=== PATIENT | female | born 1960 | race Caucasian/White ===

== ENCOUNTER → 2018-08-25 | Outpatient (CLI) | payer MEDICARE ==
[~2018-08-25] MED LIST: ASPI-1441 PO; ENAL20TA99 PO; PRAV10TA45 PO; PROP40TA45 PO; RANI150C14 PO; SER50 PO
== END ==
LOC: RESP 19:45
PROVIDERS: ATTEND Nurse Practitioner Family
DX: G47.33 Obstructive sleep apnea (adult) (pediatric) (principal); G47.36 Sleep related hypoventilation in conditions classified elsewhere

== ENCOUNTER → 2018-09-01 | Outpatient (CLI) | payer MEDICARE | LOC: US 02:08 | PROVIDERS: ATTEND Internal Medicine Cardiovascular Disease | DX: Z13.6 Encounter for screening for cardiovascular disorders (principal); I50.40 Unspecified combined systolic (congestive) and diastolic (congestive) heart failure | CPT/HCPCS: 93306 ==

== ENCOUNTER → 2018-09-21 | Outpatient (CLI) | payer MEDICARE ==
--- NOTE | 2018-09-21 16:33 | RADIOLOGY IMAGING REPORT ---
FACILITY: [facility] PATIENT NAME: Gisela Rudd : 1960 MR: [id number] V: [id number] EXAM DATE: ORDERING PHYSICIAN: ARI LYON TECHNOLOGIST: Location: [facility] - [place] Patient: Gisela Rudd : 1960 Visit/Account:[id number] Date of Sevice: 09/21/2018 2 VIEWS CHEST INDICATION: History of low oxygen saturation COMPARISON: None available FINDINGS: Heart appears at the upper limits of normal. No current failure, consolidation, infiltrate, effusion or pneumothorax. No evidence of acute bony finding. Fixation is seen of the left clavicle. The latera l view demonstrates mild prominence central bronchial waters. Chronicity of this finding is unknown. IMPRESSION: 1. Mild bronchitic changes of unknown chronicity. This can be seen in the setting of acute/chronic br onchitis or atypical pneumonitis. Report Dictated By: Tristin Salcedo MD at 09/21/2018 4:27 PM Report E-Signed By: Tristin Salcedo MD at 09/21/2018 4:28 PM WSN:[id number]
== END ==
LOC: RAD 14:23
PROVIDERS: ATTEND Nurse Practitioner Family
DX: R09.02 Hypoxemia (principal); D75.1 Secondary polycythemia
CPT/HCPCS: 71046

== ENCOUNTER → 2019-02-15 | Outpatient (CLI) | payer MEDICARE | LOC: RESP 01:19 | PROVIDERS: ATTEND Internal Medicine | DX: J98.4 Other disorders of lung (principal) | CPT/HCPCS: 94060; 94726; 94729 ==

== ENCOUNTER 2019-03-19 09:27 | Observation (INO) | payer MEDICARE ==
[~2019-03-19] VITALS: Ht 172.7 cm; Wt 137.9 kg
[2019-03-19] MEDS ORDERED: ATOR40TA69 PO (09:51)
[2019-03-19] MEDS ORDERED: AMLO-127 PO (09:51)
[2019-03-19] MEDS ORDERED: METO50TA19 PO (09:51)
[2019-03-19] MEDS ORDERED: METXR500 PO (09:51)
[2019-03-19] MEDS ORDERED: FLUO-177 PO (09:51)
[2019-03-19] MEDS ORDERED: GABA-533 PO (09:51)
--- NOTE | 2019-03-19 10:05 | ER Report ---
History and Physical Time Seen By MD: 10:05 Hx. of Stated Complaint: Pt. has had a cold for few days, but this morning she had a lot more coughing with blood tinged sputum. Fever 100 in triage. Also feels SOB and weak. HPI/ROS Presents with fever/cough/blood-tinged sputum. Sick contacts with family. Previous history of IA with stents, DM, and HTN. Worsening SOB today. No chest pain. No abdominal pain. Remainder of the 14 system rev: Yes Allergies: Coded Allergies: Sulfa (Sulfonamide Antibiotics) (Verified Allergy, Severe, RASH, BP ELEVATED, 04/17/08) TESSY Inhibitors (Verified Allergy, Intermediate, dehydration, 03/19/19) Penicillins (Verified Allergy, Intermediate, SWELLING, FEVER, 04/17/08) cephalexin (Verified Allergy, Mild, 05/29/08) hydrocodone (Verified Allergy, Mild, HEADACHE, 04/17/08) Uncoded Allergies: BANDAID (Allergy, Mild, IRRITATION, 04/17/08) Home Meds Active Scripts Levofloxacin 750 Mg Tab (LEVAQUIN 750 MG TAB) 750 Mg Tablet, 750 MG PO DAILY for 5 Days, #5 TAB Prov:KIRSTIE SCHWARTZ Yunier [employer] SUPERVISOR 03/20/19 Reported Medications Acetaminophen (TYLENOL) 325 Mg Tablet, 1950 MG PO BID, TAB 03/19/19 Atorvastatin Calcium (ATORVASTATIN CALCIUM) 40 Mg Tablet, 1 TAB PO HS 03/19/19 Metoprolol Succinate (METOPROLOL SUCCINATE) 50 Mg Tab.er.24h, 1 TAB PO DAILY 03/19/19 Metformin Hcl (METFORMIN HCL ER) 500 Mg Tabcr, 1000 MG PO DAILY 03/19/19 Gabapentin (GABAPENTIN) 600 Mg Tablet, 1 TAB PO HS 03/19/19 Fluoxetine Hcl (FLUOXETINE HCL) 20 Mg Capsule, 1 TAB PO HS 03/19/19 Amlodipine Besylate (AMLODIPINE BESYLATE) 10 Mg Tablet, 1 TAB PO DAILY 03/19/19 Aspirin (Aspirin Ec) 81 Mg Tablet.dr, 81 MG PO DAILY, 0 Refills 05/30/08 Ranitidine Hcl (Zantac) 150 Mg Capsule, 150 MG PO BID, 0 Refills 05/30/08 Discontinued Reported Medications Pravastatin Sodium (Pravachol) 10 Mg Tablet, 10 MG PO QDAY, 0 Refills 05/30/08 Sertraline Hcl (Zoloft) 50 Mg Tab, 50 MG PO QDAY, 0 Refills 05/30/08 Enalapril Maleate (Vasotec) 20 Mg Tablet, 20 MG PO DAILY, 0 Refills 05/30/08 Propranolol Hcl (Inderal) 40 Mg Tablet, 40 MG PO BID, 0 Refills 05/30/08 Hx Smoking: Yes (PAST) Constitutional Vital Sign - Last 24 Hours 03/19/19 03/19/19 03/19/19 03/19/19 09:27 09:32 09:37 09:40 Temp 100.0 Pulse ??? 97 ??? 89 Resp 16 B/P (MAP) 148/81 (103) 148/81 Pulse Ox 82 89 91 O2 Delivery Nasal Cannula 03/19/19 03/19/19 03/19/19 03/19/19 09:42 09:45 09:47 09:52 Pulse 86 91 88 Resp 15 18 B/P (MAP) 137/73 (94) Pulse Ox 91 91 90 03/19/19 03/19/19 03/19/19 03/19/19 09:57 10:00 10:02 10:07 Pulse 88 88 87 Resp 13 23 20 B/P (MAP) 154/80 (104) Pulse Ox 91 92 91 03/19/19 03/19/19 03/19/19 03/19/19 10:12 10:15 10:27 10:30 Pulse 88 87 Resp 31 B/P (MAP) 155/77 (103) 160/85 (110) Pulse Ox 93 91 03/19/19 03/19/19 03/19/19 03/19/19 10:32 10:37 10:45 11:00 Pulse 85 86 Resp 15 22 B/P (MAP) 145/81 (102) 161/83 (109) Pulse Ox 91 92 03/19/19 03/19/19 03/19/19 03/19/19 11:07 11:12 11:15 11:17 Pulse ? Resp 23 B/P (MAP) ???/??? (1255) Pulse Ox 92 O2 Delivery Nasal Cannula O2 Flow Rate 4 03/19/19 03/19/19 03/19/19 03/19/19 11:22 11:27 11:30 11:32 Pulse ? B/P (MAP) ???/??? (1665) 03/19/19 03/19/19 03/19/19 03/19/19 11:37 11:42 11:47 11:52 Pulse ? 90 88 Resp 21 24 Pulse Ox 91 93 03/19/19 03/19/19 03/19/19 03/19/19 11:57 12:00 12:02 12:07 Pulse 86 87 91 Resp 33 9 28 B/P (MAP) 140/74 (96) Pulse Ox 91 91 91 03/19/19 03/19/19 03/19/19 03/19/19 12:12 12:15 12:16 12:17 Temp 100.9 Pulse 88 89 Resp 24 22 B/P (MAP) 158/85 (109) Pulse Ox 82 91 03/19/19 03/19/19 03/19/19 03/19/19 12:22 12:27 12:30 12:32 Pulse 86 92 90 Resp 24 44 18 B/P (MAP) 164/80 (108) Pulse Ox 92 91 92 03/19/19 03/19/19 03/19/19 03/19/19 12:37 12:42 12:47 12:57 Pulse 92 ? 85 Resp 49 Pulse Ox 92 90 03/19/19 03/19/19 13:00 13:02 Pulse 85 Resp 26 B/P (MAP) 137/71 (93) Pulse Ox 91 Physical Exam General Appearance: The patient is alert, has no immediate need for airway protection and no current signs of toxicity. Eyes: Pupils equal and round no injection. Respiratory: Chest is non tender, scant rhonchi throughout Cardiac: tachycardic, regular rhythm Gastrointestinal: Abdomen is soft and non tender, no masses, bowel sounds normal. Neck: Neck is supple and non tender. Extremities have full range of motion and are non tender. Skin: No rashes or lesions. DIFFERENTIAL DIAGNOSIS: After history and physical exam differential diagnosis was considered for shortness of breath including but not limited to pulmonary infectious process, COPD, asthma, pulmonary embolus and congestive heart failure. Medical Decision Making Data Points Result Diagram: 03/20/19 0543 03/20/19 0543 Laboratory Hematology Test 03/19/19 10:04 D-Dimer Quantitative (PE/DVT) 0.53 ug/ml (0-0.50) Chemistry Test 03/19/19 10:04 D-Dimer Quantitative (PE/DVT) 0.53 ug/ml (0-0.50) Coagulation Test 03/19/19 10:04 D-Dimer Quantitative (PE/DVT) 0.53 ug/ml Microbiology Microbiology Date/Time Source Procedure Growth Status 03/19/19 12:23 Blood Blood Culture - Preliminary NO GROWTH AFTER 1 DAY, REINCUBATED Resulted 03/19/19 10:04 Blood Line Draw Blood Culture - Preliminary NO GROWTH AFTER 1 DAY, REINCUBATED Resulted ED Course/Re-evaluation ED Course Multi lobar pneumonia with hypoxia. No PE. No chest pain to suggest acute coronary syndrome. Sats in 70s upon arrival. Patient treated with antibiotics and IV fluids for sepsis. Will be admitted for further care. Decision to Disposition Date: Mar 20, 2019 Decision to Disposition Time: 10:49 Depart Departure Latest Vital Signs Vital Signs Date Time Temp Pulse Resp B/P (MAP) Pulse Ox O2 Delivery O2 Flow Rate FiO2 03/19/19 13:02 85 26 91 03/19/19 13:00 137/71 (93) 03/19/19 12:16 100.9 03/19/19 11:07 Nasal Cannula 4 Impression: Primary Impression: Pneumonia Condition: Improved Disposition: Admitted from ER New Scripts Levofloxacin 750 Mg Tab (LEVAQUIN 750 MG TAB) 750 Mg Tablet 750 MG PO DAILY for 5 Days, #5 TAB Prov: KIRSTIE SCHWARTZ Yunier [employer]ER[employer] SUPERVISOR 03/20/19 Problem Qualifiers Primary Impression: Pneumonia Pneumonia type: due to unspecified organism Laterality: bilateral Lung location: unspecified part of lung Qualified Codes: J18.9 - Pneumonia, unspecified organism VIMAL CHAMBERS MD Mar 19, 2019 10:05
[2019-03-19 10:21] LABS: PLATELET COUNT, AUTOMATED 112 K/uL (150-450)
--- NOTE | 2019-03-19 10:42 | RADIOLOGY IMAGING REPORT ---
FACILITY: [facility] PATIENT NAME: Gisela Rudd : 1960 MR: [id number] V: [id number] EXAM DATE: ORDERING PHYSICIAN: VIMAL CHAMBERS TECHNOLOGIST: Location: [facility] - [place] Patient: Gisela Rudd : 1960 Visit/Account:[id number] Date of Sevice: 03/19/2019 Technique: CHEST PA LAT HISTORY: fever/hemoptysis Comparison studies: September 21, 2018 FINDINGS: Consolidative changes are noted within the left midlung. No pleural effusion. The right cornelio g is clear. The cardiac silhouette is unchanged. Plate and screw fixation traverses the left clavicle . IMPRESSION: 1. Findings consistent with left-sided pneumonia. Report Dictated By: Thmoas Portillo DO at 03/19/2019 10:37 AM Report E-Signed By: Thomas Portillo DO at 03/19/2019 10:38 AM WSN:[id number]
[2019-03-19] MEDS ORDERED: NS(*) 0.9% 50 ML BAG 50 ML ONE ×2 (11:20→11:33)
[2019-03-19] MEDS ORDERED: IOPAMIDOL 76% 100 ML INFUS BTL 100 ML ONE ×2 (11:20→11:33)
--- NOTE | 2019-03-19 12:11 | RADIOLOGY IMAGING REPORT ---
FACILITY: [facility] - [place] PATIENT NAME: Gisela Rudd : 1960 MR: [id number] V: [id number] EXAM DATE: ORDERING PHYSICIAN: VIMAL CHAMBERS TECHNOLOGIST: Location: [facility] Patient: Gisela Rudd : 1960 Visit/Account:[id number] Date of Sevice: 03/19/2019 CT CTA CHEST W CON HISTORY: SOB/HYPOXIA TECHNIQUE: CTA chest with intravenous contrast attention to pulmonary arteries. Sagittal, coronal a nd slab 3D MIP coronal reconstructed images were also created for further evaluation and interpretati on. One of the following dose optimization techniques was utilized in the performance of this exam: Autom ated exposure control; adjustment of the mA and/or kV according to the patient's size; or use of an i terative reconstruction technique. Specific details can be referenced in the facility's radiology CT exam operational policy. CONTRAST: 100 mL Isovue-370. COMPARISON: CT dated May 29, 2008. FINDINGS: Heart/vessels: Suboptimal visualization's of distal segmental and subsegmental pulmonary arterial br anches secondary to contrast bolus timing and motion artifact. Otherwise, no visualized pulmonary emb olus. Moderate to advanced calcifications within the LAD. Moderate calcifications within the RCA and left circumflex. Mild atherosclerosis within the aortic arch. Mediastinum: Negative. Lymph nodes: Negative. Lungs/pleura: Heterogeneous consolidation and pulmonary opacities within the left upper lobe/lingula . Subtle additional groundglass opacities within the left lower lobe. Small opacities within the lowe r lobe bases, favored related to atelectasis. Trace left pleural effusion. Visualized upper abdomen: Splenomegaly measuring 14.9 cm in the axial plane. Otherwise negative. Bones/soft tissues: Negative. IMPRESSION: 1. Negative for pulmonary embolus although there is suboptimal visualization of distal segmental and subsegmental palmar edge of branches. 2. Heterogeneous consolidation and pulmonary opacities within the left upper lobe/lingula. Additional subtle opacities within the left lower lobe. Findings are most compatible with multifocal pneumonia. 3. Small opacities within the dependent lower lobes, favored to represent atelectasis although cannot exclude component of infection. 4. Nonspecific splenomegaly. 5. Additional incidental/chronic findings, as above. Report Dictated By: Harpreet Molina MD at 03/19/2019 12:02 PM Report E-Signed By: Harpreet Molina MD at 03/19/2019 12:07 PM WSN:[id number]
[2019-03-19] MEDS ORDERED: NS(*) 0.9% 1000 ML BAG 1,000 ML IV ONE (12:25)
[2019-03-19] MEDS ORDERED: DOXYCYCLINE HYCL 100 MG VIAL 100 MG in NS(*) 0.9% 250 ML BAG 250 ML IVPB ONE (12:25)
[2019-03-19] MEDS ORDERED: ACETAMINOPHEN 500 MG TAB PO ONE (12:25)
[2019-03-19 13:56] VITALS: BP 160/76
[2019-03-19] MEDS ORDERED: FLUSH 10 ML SYR IVP PRN (14:10)
[2019-03-19] MEDS ORDERED: ACET-1966 PO (14:29)
[2019-03-19] MEDS ORDERED: LEVOFLOXACIN/D5W 750 MG/150 ML 150 ML IVPB SCH (15:00)
[2019-03-19] MEDS ORDERED: LR(*) 1000 ML BAG 1,000 ML IV ONE (15:10)
--- NOTE | 2019-03-19 17:16 | History & Physical ---
History of Present Illness Chief Complaint blood tinged sputum History of Present Illness 58F presented with cough, blood tinged sputum. PMHx significant for obesity, DM, HTN, CAD. Reports not feeling well for a few days. Today had cough productive of blood tinged sputum. In ER found to be mildly hypoxic on baseline 3L, CT negative for PE but did show multifocal pneumonia. LA was slightly elevated at 3.3 and she was febrile. Admitted for IV antibiotics and fluid. History Problems: (1) DM (diabetes mellitus) Status: Chronic (2) Morbid obesity with BMI of 45.0-49.9, adult Status: Chronic (3) Hypertension Status: Chronic (4) CAD (coronary artery disease) Status: Chronic Home Meds Reported Medications Acetaminophen (TYLENOL) 325 Mg Tablet, 1950 MG PO BID, TAB 03/19/19 Atorvastatin Calcium (ATORVASTATIN CALCIUM) 40 Mg Tablet, 1 TAB PO HS 03/19/19 Metoprolol Succinate (METOPROLOL SUCCINATE) 50 Mg Tab.er.24h, 1 TAB PO DAILY 03/19/19 Metformin Hcl (METFORMIN HCL ER) 500 Mg Tabcr, 1000 MG PO DAILY 03/19/19 Gabapentin (GABAPENTIN) 600 Mg Tablet, 1 TAB PO HS 03/19/19 Fluoxetine Hcl (FLUOXETINE HCL) 20 Mg Capsule, 1 TAB PO HS 03/19/19 Amlodipine Besylate (AMLODIPINE BESYLATE) 10 Mg Tablet, 1 TAB PO DAILY 03/19/19 Aspirin (Aspirin Ec) 81 Mg Tablet.dr, 81 MG PO DAILY, 0 Refills 05/30/08 Ranitidine Hcl (Zantac) 150 Mg Capsule, 150 MG PO BID, 0 Refills 05/30/08 Discontinued Reported Medications Pravastatin Sodium (Pravachol) 10 Mg Tablet, 10 MG PO QDAY, 0 Refills 05/30/08 Sertraline Hcl (Zoloft) 50 Mg Tab, 50 MG PO QDAY, 0 Refills 05/30/08 Enalapril Maleate (Vasotec) 20 Mg Tablet, 20 MG PO DAILY, 0 Refills 05/30/08 Propranolol Hcl (Inderal) 40 Mg Tablet, 40 MG PO BID, 0 Refills 05/30/08 Allergies: Coded Allergies: Sulfa (Sulfonamide Antibiotics) (Verified Allergy, Severe, RASH, BP ELEVATED, 04/17/08) TESSY Inhibitors (Verified Allergy, Intermediate, dehydration, 03/19/19) Penicillins (Verified Allergy, Intermediate, SWELLING, FEVER, 04/17/08) cephalexin (Verified Allergy, Mild, 05/29/08) hydrocodone (Verified Allergy, Mild, HEADACHE, 04/17/08) Uncoded Allergies: BANDAID (Allergy, Mild, IRRITATION, 04/17/08) Patient History: FH: cancer FATHER FH: congestive heart failure MOTHER FH: diabetes mellitus MOTHER FH: heart disease MOTHER Hx Smoking: Yes Smoking Status: Former Smoker Caffeine Intake: Coffee Hx Alcohol Use: No Hx Substance Use Disorder: No Social Drug Use: Never Review of Systems All Systems Reviewed/Normal: Yes, Except as Noted Constitutional: Fever Respiratory: Cough Gastrointestinal: No Nausea, No Vomiting Exam Vital Signs Vital Signs Date Time Temp Pulse Resp B/P (MAP) Pulse Ox O2 Delivery O2 Flow Rate FiO2 03/19/19 13:56 100.2 83 16 160/76 (104) 92 Nasal Cannula 4.0 General Appearance: Alert, Awake, No Acute Distress Neuro: No Gross deficits Cardiovascular: Normal Rhythm & Peripheral Pulses Respiratory: No Respiratory Distress GI: Abd Soft and Non-Tender Extremities: Soft and Non Tender, Warm, Pulses, Perfused, Edema (mild) Medical Decision Making Data Points Result Diagram: 03/19/19 1004 03/19/19 1004 Assessment and Plan Problems: (1) Pneumonia Assessment & Plan: Multifocal pneumonia per CT. Begin empiric levofloxacin based on allergy profile. Feeling much better anticipate discharge tomorrow. (2) Lactic acidosis Assessment & Plan: Appears secondary to mild hypoxia. Improved with IV fluids. (3) Chronic respiratory failure with hypoxia Status: Chronic Assessment & Plan: Unclear etiology, follows with pulmonology. She is at her baseline 3L during day, uses CPAP with 5L at night. (4) CAD (coronary artery disease) Status: Chronic Assessment & Plan: History of stent several years ago. Occasional chest pain, none recently. (5) Hypertension Status: Chronic Assessment & Plan: Continue chronic medications. (6) DM (diabetes mellitus) Status: Chronic Assessment & Plan: Hold metformin, will monitor with lab and add SSI if necessary. Venous Thromboembolism Antithrombotics Is Pt On Any Antithrombotics?: Yes Exam Sepsis Risk: No Definite Risk GILLETTE TONI WOMACK DO Mar 19, 2019 17:15
[2019-03-19] MEDS ORDERED: ACETAMINOPHEN 500 MG TAB PO PRN (17:20)
[2019-03-19] MEDS ORDERED: PSEUDOEPHEDRINE 30 MG TAB PO PRN (17:25)
[2019-03-19 18:45] VITALS: BP 139/78
[2019-03-19] MEDS: GABAPENTIN 300 MG CAP PO SCH (20:19)
[2019-03-19] MEDS: RANITIDINE HCL 150 MG TAB PO SCH (20:19)
[2019-03-19] MEDS ORDERED: ATORVASTATIN 40 MG TAB PO SCH (21:00)
[2019-03-19 23:05] VITALS: BP 135/53
[2019-03-20 06:05] LABS: PLATELET COUNT, AUTOMATED 116 K/uL (150-450)
[2019-03-20 06:40] VITALS: BP 149/71
[2019-03-20] MEDS ORDERED: LEVO750T44 PO (08:04)
--- NOTE | 2019-03-20 08:10 | Hospitalist Depart ---
Discharge Summary Reason for Hosp/Final Diag: (1) Pneumonia Status: Acute Hospital Course & Plan: Multifocal pneumonia per CT. She was placed on empiric levofloxacin based on allergy profile. She reports much improvement in symptoms. She is at her baseline oxygen use. She will follow up with PCP in one week. (2) Lactic acidosis Hospital Course & Plan: Appears secondary to mild hypoxia. Improved with IV fluids. (3) Chronic respiratory failure with hypoxia Status: Chronic Hospital Course & Plan: Unclear etiology, follows with pulmonology. She is at her baseline 3L during day, uses CPAP with 5L at night. (4) CAD (coronary artery disease) Status: Chronic Hospital Course & Plan: History of stent several years ago. Occasional chest pain, none recently. (5) Hypertension Status: Chronic Hospital Course & Plan: Continue chronic medications. (6) DM (diabetes mellitus) Status: Chronic Hospital Course & Plan: Hold metformin, will monitor with lab and add SSI if necessary. Departure Latest Vital Signs Vital Signs 03/20/19 03/20/19 03/20/19 05:25 06:40 07:41 Temp 99.1 Pulse 68 Resp 24 B/P (MAP) 149/71 (97) Pulse Ox 96 O2 Delivery Nasal Cannula O2 Flow Rate 3.0 FiO2 40.0 Weight (Pounds): 304 Result Diagram: 03/20/19 0543 03/20/19 0543 Condition: Improved Discharge: Home, Self Care Discharge Instructions Home Meds Active Scripts Levofloxacin 750 Mg Tab (LEVAQUIN 750 MG TAB) 750 Mg Tablet, 750 MG PO DAILY for 5 Days, #5 TAB Prov:KIRSTIE SCHWARTZ Yunier [employer] SCI[employer] TEACHER 03/20/19 Reported Medications Acetaminophen (TYLENOL) 325 Mg Tablet, 1950 MG PO BID, TAB 03/19/19 Atorvastatin Calcium (ATORVASTATIN CALCIUM) 40 Mg Tablet, 1 TAB PO HS 03/19/19 Metoprolol Succinate (METOPROLOL SUCCINATE) 50 Mg Tab.er.24h, 1 TAB PO DAILY 03/19/19 Metformin Hcl (METFORMIN HCL ER) 500 Mg Tabcr, 1000 MG PO DAILY 03/19/19 Gabapentin (GABAPENTIN) 600 Mg Tablet, 1 TAB PO HS 03/19/19 Fluoxetine Hcl (FLUOXETINE HCL) 20 Mg Capsule, 1 TAB PO HS 03/19/19 Amlodipine Besylate (AMLODIPINE BESYLATE) 10 Mg Tablet, 1 TAB PO DAILY 03/19/19 Aspirin (Aspirin Ec) 81 Mg Tablet.dr, 81 MG PO DAILY, 0 Refills 05/30/08 Ranitidine Hcl (Zantac) 150 Mg Capsule, 150 MG PO BID, 0 Refills 05/30/08 Discontinued Reported Medications Pravastatin Sodium (Pravachol) 10 Mg Tablet, 10 MG PO QDAY, 0 Refills 05/30/08 Sertraline Hcl (Zoloft) 50 Mg Tab, 50 MG PO QDAY, 0 Refills 05/30/08 Enalapril Maleate (Vasotec) 20 Mg Tablet, 20 MG PO DAILY, 0 Refills 05/30/08 Propranolol Hcl (Inderal) 40 Mg Tablet, 40 MG PO BID, 0 Refills 05/30/08 Diet: Regular Activity: As Tolerated Special Instructions: Follow up with PCP in one week. Take Levaquin as prescribed until gone. Venous Thromboembolism Antithrombotics Is Pt On Any Antithrombotics?: Yes KIRSTIE SCHWARTZ Mar 20, 2019 08:10
[2019-03-20] MEDS: RANITIDINE HCL 150 MG TAB PO SCH (08:15)
[2019-03-20] MEDS: GABAPENTIN 300 MG CAP PO SCH (08:16)
[2019-03-20] MEDS ORDERED: ENOXAPARIN 40 MG/0.4ML SYR SC SCH (09:00)
[2019-03-20] MEDS ORDERED: metFORMIN HCL XR 500 MG TABCR PO SCH (09:00)
[2019-03-20] MEDS ORDERED: FLUoxetine HCL 20 MG CAP PO SCH (09:00)
[2019-03-20] MEDS ORDERED: METOPROLOL SUCC XL 50 MG TABCR 50 MG TAB.ER.24H PO SCH (09:00)
[2019-03-20] MEDS ORDERED: ASPIRIN 81 MG CHEW PO SCH (09:00)
[2019-03-20] MEDS ORDERED: amLODIPine BESYL(*) 5 MG TAB PO SCH (09:00)
[2019-03-20] MEDS ORDERED: LEVOFLOXACIN 750 MG TAB PO SCH (12:00)
--- NOTE | 2019-03-20 14:58 | Antimicrobial Stewardship ---
Antimicrobial Stewardship Empiricly appropriate: Yes Comment Started on Doxycycline in ED then changed to Levaquin 750 mg po daily for 5 days for community acquired pneumonia. Approriate Cultures done: Yes (NGTD) Renal/Hepatic dosing: Yes Reviewed for Drug Interaction: Yes Monitored for Toxicities: Yes Clinically stable/improving: Yes IV to PO Opportunity: Yes Determine cumulative duration: 5 days MAURICIO POWER Mar 20, 2019 14:58
== END 2019-03-20 08:04 | disposition home or self-care (01) ==
LOC: ER 10:10 → MED 13:06 → INTOOBSV 13:06
PROVIDERS: ADMIT Internal Medicine; ATTEND Internal Medicine
DX: J18.9 Pneumonia, unspecified organism (principal); E87.2 Acidosis; J96.11 Chronic respiratory failure with hypoxia; E66.01 Morbid (severe) obesity due to excess calories; I10 Essential (primary) hypertension; I25.10 Atherosclerotic heart disease of native coronary artery without angina pectoris; E11.9 Type 2 diabetes mellitus without complications; I25.2 Old myocardial infarction; Z68.42 Body mass index [BMI] 45.0-49.9, adult; Z87.891 Personal history of nicotine dependence; Z79.82 Long term (current) use of aspirin; Z79.84 Long term (current) use of oral hypoglycemic drugs; Z79.899 Other long term (current) drug therapy; Z95.5 Presence of coronary angioplasty implant and graft
CPT/HCPCS: 36415; 36416; 71046; 71275; 82948; 83605; 85025; 85379; 87040; 94660; 96365; 99284; A9270; G0378; J3490; J7030; J7050; J7120; Q9967; 82040; 82247; 82310; 82374; 82435; 82565; 82947; 84075; 84132; 84155; 84295; 84450; 84460; 84520